=== PATIENT | female | born 1970 | race American Indian/Alaskan Native ===

== ENCOUNTER 2017-10-18 18:02 | Emergency (ER) | payer OTHER ==
[2017-10-18 18:10] VITALS: BP 129/80
--- NOTE | 2017-10-18 20:14 | Emergency Department Report ---
ED Female HPI - General Chief complaint: Urogenital-Female Stated complaint: BLADDER INFECTION Time Seen by Provider: 10/18/17 19:23 Source: patient Mode of arrival: Ambulatory Limitations: No Limitations - History of Present Illness Initial comments: This is a 47-year-old female here reports that she has a burning and pressure with urination for about a week. She denies any back or abdominal pain. Denies any vaginal bleeding or discharge and has no concern for STD. Patient has a history of total hysterectomy. She has diagnoses of diabetes and hypertension which she states in medication and she said they're both under control. Denies any nausea or vomiting or fever or chills. She says she is having urinary burning that's 5 out of 10 when she urinates but she is not having any abdominal pain as stated on triage nurse's notes. Pain is worse with urinating and she only has pain with urinating and better when she is not urinating. MD Complaint: dysuria Onset/Timin -: week(s) Radiation: non-radiating Severity: moderate Severity scale (0 -10): 5 Quality: burning Consistency: intermittent Improves with: other (after urination) Worsens with: urination Are you Now?: No (menopause from total hysterectomy) Associated Symptoms: dysuria. denies: vaginal discharge, vaginal bleeding, abdominal pain, nausea/vomiting, fever/chills, headaches, loss of appetite, hematuria, rash, seizure, shortness of breath, syncope, weakness - Related Data Sexually active: No Previous Rx's Medication Instructions Recorded Last Taken Type Nitrofurantoin Kern/M-Cryst 100 mg PO Q12HR 7 Days #14 capsule 10/18/17 Unknown Rx [Macrobid CAP] Allergies Allergy/AdvReac Type Severity Reaction Status Date / Time influenza virus vaccine, AdvReac Rash Verified 10/18/17 18:06 specific [influenza virus vacc,specific] sulfamethoxazole AdvReac Rash Verified 10/18/17 18:06 [From ] trimethoprim [From ] AdvReac Rash Verified 10/18/17 18:06 ED Review of Systems ROS: Stated complaint: BLADDER INFECTION Other details as noted in HPI Constitutional: denies: chills, fever Respiratory: denies: cough, shortness of breath, SOB with exertion, SOB at rest , wheezing Cardiovascular: denies: chest pain, palpitations, edema, syncope Gastrointestinal: denies: abdominal pain, nausea, vomiting, diarrhea, constipation Genitourinary: dysuria, other (urinary pressure). denies: urgency, frequency, hematuria, discharge, abnormal menses, dyspareunia Musculoskeletal: denies: back pain, joint swelling, arthralgia Skin: denies: rash, lesions Neurological: denies: headache ED Past Medical Hx - Past Medical History Previous Medical History?: Yes Hx Hypertension: Yes Hx Diabetes: Yes - Surgical History Past Surgical History?: Yes Additional Surgical History: Breast reduction, hysterectomy - Family History Family history: hypertension - Social History Smoking Status: Never Smoker Substance Use Type: None - Medications Home Medications: Home Medications Medication Instructions Recorded Confirmed Last Taken Type Nitrofurantoin [place]ern/M-Cryst 100 mg PO Q12HR 7 Days #14 capsule 10/18/17 Unknown Rx [Macrobid CAP] ED Physical Exam - General Limitations: No Limitations General appearance: alert, in no apparent distress - Head Head exam: Present: atraumatic, normocephalic, normal inspection - Eye Eye exam: Present: normal appearance, PERRL, EOMI Pupils: Present: normal accommodation - ENT ENT exam: Present: normal exam, normal orophraynx, mucous membranes moist - Neck Neck exam: Present: normal inspection, full ROM. Absent: tenderness, meningismus, lymphadenopathy - Respiratory Respiratory exam: Present: normal lung sounds bilaterally. Absent: respiratory distress, chest wall tenderness - Cardiovascular Cardiovascular Exam: Present: regular rate, normal rhythm, normal heart sounds - GI/Abdominal GI/Abdominal exam: Present: soft, normal bowel sounds. Absent: distended, tenderness, guarding, rebound, rigid, organomegaly, mass, pulsatile mass, hernia - Extremities Exam Extremities exam: Present: normal inspection, full ROM, normal capillary refill , other (No cce. + 2 pulses in all extremities, no neurovascular compromise). Absent: tenderness, pedal edema, joint swelling, calf tenderness - Back Exam Back exam: Present: normal inspection, full ROM, other (Ambulates without any difficulties). Absent: tenderness, CVA tenderness (R), CVA tenderness (L), muscle spasm, paraspinal tenderness, vertebral tenderness, rash noted - Neurological Exam Neurological exam: Present: alert, oriented X3, normal gait - Psychiatric Psychiatric exam: Present: normal affect, normal mood - Skin Skin exam: Present: warm, dry, intact, normal color. Absent: rash ED Course Vital Signs 10/18/17 18:06 Temperature 98.5 F Pulse Rate 85 Respiratory 18 Rate Blood Pressure 129/80 O2 Sat by Pulse 100 Oximetry - Reevaluation(s) Reevaluation #1: 10/18/17 21:11 Patient is stable throughout ED course with no complaints. ED Medical Decision Making - Lab Data Lab Results 10/18/17 Range/Units Unknown Urine Color Yellow (Yellow) Urine Turbidity Clear (Clear) Urine pH 5.0 (5.0-7.0) Ur Specific [place] 1.017 (1.003-1.030) Urine Protein <15 mg/dl (Negative) mg/dL Urine Glucose (UA) Neg (Negative) mg/dL Urine Ketones Neg (Negative) mg/dL Urine Blood Neg (Negative) Urine Nitrite Neg (Negative) Urine Bilirubin Neg (Negative) Urine Urobilinogen < 2.0 (<2.0) mg/dL Ur Leukocyte Esterase Tr (Negative) Urine WBC (Auto) 9.0 H (0.0-6.0) /HPF Urine RBC (Auto) 3.0 (0.0-6.0) /HPF U Epithel Cells (Auto) 4.0 (0-13.0) /HPF Urine Bacteria (Auto) 1+ (Negative) /HPF Urine Mucus Few /HPF Urine culture sent - Medical Decision Making This is a 47-year-old female here for urinary burning and pressure for over a week. She is here to be evaluated. Patient was seen and examined by myself and physical exam is normal. Her urinalysis reflects that she has leukocyte esterase, bacteria and white blood cell. This was relayed to patient and she voiced understanding. Urine culture sent 1: Dysuria and urinary pressure-UA positive for leukocyte esterase, bacteria and white blood cell. Urine culture sent. 2: Acute cystitis without hematuria - Will be placed on Macrobid for UTI . Follow-up with primary care physician Patient educated on diagnosis, laboratory findings, medication and he voiced understanding. Patient discharged home with family in stable condition with prescription for Macrobid. Her vital signs are stable he is afebrile and she is nontoxic in appearance. I discussed with her to return to the emergency room if he has worsening symptoms such as back pain, abdominal pain, nausea and vomiting, fever or chills and if his symptoms are worse and he voiced understanding. She is to follow up with his primary care physician in 2 days and if he does not have one to follow up at [facility] Critical care attestation.: If time is entered above; I have spent that time in minutes in the direct care of this critically ill patient, excluding procedure time. ED Disposition Clinical Impression: Acute cystitis without hematuria, Dysuria Disposition: TO HOME OR SELFCARE Is pt being admited?: No Condition: Stable Instructions: Dysuria (ED), Urinary Tract Infection in Women (ED) Additional Instructions: Follow-up primary care physician and if you do not have a primary care physician follow-up at [facility]. Call tomorrow to schedule an appointment Take antibiotic as prescribed. Reason to hold G urine when he gets the urge to urinate and drink plenty of fluids to include after juice, cranberry juice and water. Avoid caffeinated beverages and carbonated beverages. If you conditions worsens, return to the emergency room Prescriptions: Nitrofurantoin Kern/M-Cryst [Macrobid CAP] 100 mg PO Q12HR 7 Days #14 capsule Referrals: PRIMARY CARE, [Primary Care Provider] - 2-3 Days [facility] [Outside] - 2-3 Days Forms: Work/School Release Form(ED)
[2017-10-18 20:47] LABS: Bacteria,Urine 1+ /HPF (Negative); Bilirubin,Urine NEG (Negative); Blood,Urine NEG (Negative); Color,Urine Yellow (Yellow); Mucus,Urine FEW /HPF; Protein,Urine <15 mg/dL mg/dL (Negative); Urobilinogen,Urine < 2.0 mg/dL (<2.0)
== END 2017-10-18 21:33 | disposition home or self-care (01) ==
LOC: ED 18:02
DX: N30.00 Acute cystitis without hematuria (principal); I10 Essential (primary) hypertension; E11.9 Type 2 diabetes mellitus without complications; Z90.710 Acquired absence of both cervix and uterus
CPT/HCPCS: 81001; 87086